=== PATIENT | female | born 1960 | race Caucasian/White ===

== ENCOUNTER 2023-08-16 11:50 | Outpatient (CLI) | payer OTHER | END 2023-08-16 11:51 | disposition home or self-care (01) | LOC: CSHWCC 11:50 | PROVIDERS: ATTEND Nurse Practitioner Family | DX: T81.31XD Disruption of external operation (surgical) wound, not elsewhere classified, subsequent encounter (principal); T84.41 Breakdown (mechanical) of other internal orthopedic devices, implants and grafts; Z72.0 Tobacco use | CPT/HCPCS: 97607 ==

== ENCOUNTER 2023-09-06 14:27 | Outpatient (CLI) | payer OTHER | END 2023-09-06 14:28 | disposition home or self-care (01) | LOC: CSHWCC 14:27 | PROVIDERS: ATTEND Nurse Practitioner Family | DX: T84.41 Breakdown (mechanical) of other internal orthopedic devices, implants and grafts (principal); T81.31XD Disruption of external operation (surgical) wound, not elsewhere classified, subsequent encounter; Z72.0 Tobacco use | CPT/HCPCS: 97605 ==

== ENCOUNTER 2023-09-11 17:11 | Outpatient (CLI) | payer OTHER | END 2023-09-11 17:12 | disposition home or self-care (01) | LOC: CSHWCC 17:11 | PROVIDERS: ATTEND Nurse Practitioner Family | DX: T81.31XD Disruption of external operation (surgical) wound, not elsewhere classified, subsequent encounter (principal); T84.41 Breakdown (mechanical) of other internal orthopedic devices, implants and grafts; Z72.0 Tobacco use | CPT/HCPCS: 11042; 97607 ==